=== PATIENT | male | born 1980 | race Caucasian/White ===

== ENCOUNTER → 2017-06-23 17:32 | Outpatient (CLI) | payer OTHER, SELFPAY ==
[2017-06-23 18:07] LABS: Absolute Lymphocyte Count 1.49 X10^3/ul (0.83-4.51); Absolute Neutrophil Count 3.8 X10^3/uL (2.0-7.7); Basophil# 0.14 X10^3/uL; Basophil% 2.2 % (0-1); Eosinophil# 0.34 X10^3/uL; Eosinophils% 5.3 % (0-5); Hematocrit 41.5 % (40-54); Hemoglobin 14.1 g/dl (13.0-16.5); Lymphocyte # 1.49 X10^3/ul (4.0); Lymphocyte % 23.3 % (19-41); Mean Corpuscular Hgb 31.1 pg (27.0-32.0); Mean Corpuscular Volume 91.4 fL (80-94); Mean Platelet Vol. 9.3 fl (6.2-12.0); Monocyte# 0.61 X10^3/uL; Monocyte% 9.5 % (0-10); Neutrophil # 3.77 X10^3/uL (2.7-7.7); Neutrophil % 59.1 % (47-70); POSITIVE COUNT NO; POSITIVE DIFFERENTIAL NO; POSITIVE MORPHOLOGY NO; Platelet Count 236 K/mm3 (150-450); RBC Distribution Width CV 12.9 % (11.6-14.6); RBC Distribution Width SD 42.2 fl (35.1-43.9); Red Blood Count 4.54 M/mm3 (4.6-6.2); White Blood Count 6.4 K/mm3 (4.4-11.0)
[2017-06-23 18:34] LABS: ALB/GLOB Ratio 1.1 RATIO (0.9-2.4); AST(SGOT) 25 U/L (15-37); Alanine Aminotransfer ALT/SGPT 38 U/L (16-61); Albumin, Serum 3.8 g/dL (3.2-5.0); Alkaline Phosphatase 89 U/L (45-117); Anion Gap 7 (5-15); BUN 17 mg/dL (7-18); Calcium,Total 8.9 mg/dL (8.5-10.1); Chloride 104 mmol/L (98-107); Cholesterol 141 mg/dL (200); Creatinine, Serum 0.74 mg/dL (0.70-1.30); EST Glomerular Filtration Rate 128 mL/min (>60); Est Glom Filt Rate - Afr Amer 155 mL/min (>60); Globulin 3.4 g/dL (2.2-4.2); Glucose 78 mg/dL (74-106); High Density Lipoprotein 51 mg/dL; Iron 61 ug/dL (65-175); Iron Binding Capacity,Total 329 ug/dL (250-450); Potassium 3.7 mmol/L (3.5-5.1); Prealbumin 25.6 mg/dL (20.0-40.0); Protein, Total 7.2 g/dL (6.4-8.2); Sodium Level 140 mmol/L (136-145); Triglycerides 36 mg/dL; Very Low Density Lipoprotein 7 mg/dL (5-40)
[2017-06-23 19:09] LABS: HIV - WCH Non-Reactive (Nonreactive); Vitamin B12 818 pg/mL (211-911); Vitamin D,25 Hydroxy 46.2 ng/mL (29.95-100.01)
[2017-06-29 03:06] LABS: Immunoglobulin A 131 mg/dL (90-386); Immunoglobulin E 259 IU/mL (0-100); Immunoglobulin G 649 mg/dL (700-1600); Immunoglobulin M 70 mg/dL (20-172)
[2017-06-29 08:12] LABS: Hep C Antibodies 0.1 s/co ratio (0.0-0.9)
== END ==
PROVIDERS: Visit Provider Family Medicine Geriatric Medicine
DX: R63.8 Other symptoms and signs concerning food and fluid intake (principal)
CPT/HCPCS: 36415; 80053; 80061; 82306; 82607; 82746; 82784; 82785; 83540; 83550; 84134; 84443; 85025; 86703; 86803

== ENCOUNTER → 2017-07-08 15:05 | Outpatient (CLI) | payer OTHER, SELFPAY ==
--- NOTE | 2017-07-08 16:08 | CT_ITS ---
STUDY: CT ABDOMEN AND PELVIS WITH CONTRAST REASON FOR EXAM: Male, 37 years old. Epigastric pain 2 days nausea for months RADIATION DOSAGE (If Supplied By Facility): CTDIvol = ( 9.22 ) mGy, DLP = ( 425.5 ) mGycm TECHNIQUE: Transaxial images were obtained from the dome of the diaphragm to the symphysis pubis with oral contrast. 100 ml of Isovue 300 contrast was administered. Sagittal and coronal images were reconstructed. Individualized dose optimization techniques were used for this CT. COMPARISON: None. FINDINGS: The visualized lung bases are unremarkable. The visualized portions of the heart are within normal limits. Normal liver. Normal gallbladder and extrahepatic biliary system. Normal spleen. Normal pancreas. Normal bilateral adrenal glands. Normal right kidney. Normal left kidney. There is contrast in the stomach. There is contrast in the small bowel. There is abundant stool in the colon from the cecum to the rectum. Appendix is seen on image #38 coronal views partially contrasted. Normal abdominal aorta. The IVC appears distended. Normal retroperitoneum. The bladder is distended. Normal visualized prostate gland. Normal abdominal wall. Normal osseous structures. CT/Abdomen/Pelvis WITH Contrast IMPRESSION: Constipation nonspecific bowel gas pattern. No evidence of appendicitis. Nonspecific distention of the inferior vena cava. Electronically Signed: Emperatriz Jessica MD at 16:48 EDT Tel , Service support ,
[2017-07-08 16:23] LABS: Absolute Lymphocyte Count 0.36 X10^3/ul (0.83-4.51); Absolute Neutrophil Count 7.6 X10^3/uL (2.0-7.7); Basophil# 0.05 X10^3/uL; Basophil% 0.6 % (0-1); Eosinophil# 0.15 X10^3/uL; Eosinophils% 1.7 % (0-5); Hemoglobin 15.8 g/dl (13.0-16.5); Lymphocyte # 0.36 X10^3/ul (4.0); Lymphocyte % 4.1 % (19-41); Mean Corp Hgb Conc 33.6 g/gl (32-36); Mean Corpuscular Hgb 31.4 pg (27.0-32.0); Mean Corpuscular Volume 93.4 fL (80-94); Mean Platelet Vol. 10.5 fl (6.2-12.0); Monocyte# 0.58 X10^3/uL; Monocyte% 6.6 % (0-10); Neutrophil # 7.61 X10^3/uL (2.7-7.7); Neutrophil % 86.8 % (47-70); Platelet Count 171 K/mm3 (150-450); RBC Distribution Width CV 13.9 % (11.6-14.6); RBC Distribution Width SD 46.2 fl (35.1-43.9); Red Blood Count 5.03 M/mm3 (4.6-6.2); White Blood Count 8.8 K/mm3 (4.4-11.0)
[2017-07-08 16:24] LABS: Differential Indicated SCAN CRITERIA MET; POSITIVE COUNT NO; POSITIVE DIFFERENTIAL YES; POSITIVE MORPHOLOGY NO
[2017-07-08 16:40] LABS: ALB/GLOB Ratio 1.3 RATIO (0.9-2.4); AST(SGOT) 37 U/L (15-37); Alanine Aminotransfer ALT/SGPT 41 U/L (16-61); Albumin, Serum 3.8 g/dL (3.2-5.0); Alkaline Phosphatase 80 U/L (45-117); Amylase 62 U/L (25-115); Anion Gap 8 (5-15); BUN 18 mg/dL (7-18); BUN/Creat Ratio 22.3 RATIO (10-20); Calcium,Total 8.4 mg/dL (8.5-10.1); Chloride 105 mmol/L (98-107); Creatinine, Serum 0.81 mg/dL (0.70-1.30); Differential Comment SCANNED; EST Glomerular Filtration Rate 115 mL/min (>60); Est Glom Filt Rate - Afr Amer 140 mL/min (>60); Glucose 80 mg/dL (74-106); Lipase 99 U/L (73-393); Potassium 3.9 mmol/L (3.5-5.1); Protein, Total 6.8 g/dL (6.4-8.2); Sodium Level 140 mmol/L (136-145)
[2017-07-09 09:27] LABS: Bilirubin, Direct 0.34 mg/dL (0.00-0.30)
[2017-07-10 04:09] LABS: HEPATITIS B SURFACE AG Negative (Negative); Hepatitis A AB, Total Negative (Negative); Hepatitis A IgM Antibody Negative (Negative); Hepatitis B Core AB IgM Negative (Negative); Hepatitis B Core Ab Total Negative (Negative); Hepatitis C Ab <0.1 s/co ratio (0.0-0.9)
[2017-07-10 09:03] LABS: Hep B Surface Antibodies Reactive (.)
== END ==
PROVIDERS: Family Provider Family Medicine Geriatric Medicine; PCP Family Medicine Geriatric Medicine; Visit Provider Family Medicine Geriatric Medicine
DX: R10.9 Unspecified abdominal pain (principal); R50.9 Fever, unspecified; R63.4 Abnormal weight loss
CPT/HCPCS: 74177; 80053; 82150; 82248; 83690; 85025; 86704; 86705; 86706; 86708; 86709; 86803; 87040; 87340; Q9967

== ENCOUNTER → 2017-07-09 18:02 | Outpatient (CLI) | payer OTHER, SELFPAY | PROVIDERS: Family Provider Family Medicine Geriatric Medicine; PCP Family Medicine Geriatric Medicine; Visit Provider Family Medicine Geriatric Medicine | DX: R69 Illness, unspecified (principal) ==

== ENCOUNTER → 2017-07-10 08:03 | Outpatient (CLI) | payer OTHER, SELFPAY ==
--- NOTE | 2017-07-10 08:06 | US_ITS ---
STUDY: ABDOMINAL ULTRASOUND - RIGHT UPPER QUADRANT REASON FOR VISIT: Male, 37 years old. Right upper quadrant pain. Elevated bilirubin level. TECHNIQUE: Ultrasound evaluation of the right upper quadrant was performed with real-time and static covarrubias-scale imaging. TECHNICAL QUALITY: Adequate. COMPARISON: None. FINDINGS: Liver: The liver measures 14.4 cm. There is normal echogenicity of the liver. The bile ducts are within normal limits. There is hepatic color flow. The direction of portal flow is hepatopetal. There is no demonstrated mass lesion. Gallbladder: Normal distended gallbladder. The gallbladder wall measures 1.8 mm. There is a negative sonographic Hall's sign. There is no pericholecystic fluid. There are no gallstones. Common Bile Duct (C.B.D.): The common bile duct measures 4.7 mm. Pancreas: Normal size of the head, body and tail of the pancreas. There is normal echogenicity of the pancreas. There is no demonstrated pancreatic mass or cyst. Right Kidney: Normal size of the right kidney. The right kidney measures 12.5 cm x 5.1 cm x 4.7 cm. Normal renal cortex. The right cortex measures 1.6 cm. There is no demonstrated renal mass or cyst. There is no right hydronephrosis. US/Abdomen Limited IMPRESSION: Normal right upper quadrant ultrasound examination. Electronically Signed: Ricardo Diamond MD at 8:58 EDT Tel [phone], Service support ,
[2017-07-11 13:05] LABS: Anti-Mitochondrial AB <20.0 Units (0.0-20.0)
== END ==
PROVIDERS: Family Provider Family Medicine Geriatric Medicine; PCP Family Medicine Geriatric Medicine; Visit Provider Family Medicine Geriatric Medicine
DX: R10.9 Unspecified abdominal pain (principal); E80.6 Other disorders of bilirubin metabolism; R50.9 Fever, unspecified
CPT/HCPCS: 36415; 76705; 83516; 87633

== ENCOUNTER 2017-07-28 14:52 | Outpatient (RCR) | payer OTHER, SELFPAY | END 2017-07-28 14:53 | LOC: NS 14:52 | PROVIDERS: Family Provider Family Medicine Geriatric Medicine; PCP Family Medicine Geriatric Medicine; Visit Provider Family Medicine Geriatric Medicine | DX: R63.8 Other symptoms and signs concerning food and fluid intake (principal); R63.4 Abnormal weight loss; Z71.3 Dietary counseling and surveillance | CPT/HCPCS: 97802 ==

== ENCOUNTER → 2017-10-06 14:36 | Outpatient (CLI) | payer OTHER, SELFPAY ==
[2017-10-06 15:48] LABS: AST(SGOT) 28 U/L (15-37); Alanine Aminotransfer ALT/SGPT 38 U/L (16-61); Albumin, Serum 4.1 g/dL (3.2-5.0); Alkaline Phosphatase 92 U/L (45-117); Bilirubin, Direct 0.23 mg/dL (0.00-0.30); GGTP 26 U/L (15-85); Globulin 2.6 g/dL (2.2-4.2); Protein, Total 6.7 g/dL (6.4-8.2)
== END ==
PROVIDERS: Family Provider Family Medicine Geriatric Medicine; PCP Family Medicine Geriatric Medicine; Visit Provider Internal Medicine Gastroenterology
DX: E80.6 Other disorders of bilirubin metabolism (principal); E80.4 Gilbert syndrome
CPT/HCPCS: 36415; 80076; 82977

== ENCOUNTER → 2018-01-19 16:03 | Outpatient (CLI) | payer OTHER, SELFPAY | PROVIDERS: Family Provider Family Medicine Geriatric Medicine; PCP Family Medicine Geriatric Medicine | DX: N46.11 Organic oligospermia (principal) | CPT/HCPCS: 36415; 84403 ==

== ENCOUNTER → 2018-07-21 | Outpatient (CLI) | payer OTHER, SELFPAY ==
[2018-07-21 10:08] LABS: Hematocrit 45.6 % (40-54)
[2018-07-21 11:44] LABS: Prolactin 5.9 ng/mL
== END | disposition home or self-care (01) ==
LOC: MTLAB 08:42
PROVIDERS: Family Provider Family Medicine Geriatric Medicine; PCP Family Medicine Geriatric Medicine
DX: E29.1 Testicular hypofunction (principal)
CPT/HCPCS: 36415; 82670; 84146; 84403; 85014

== ENCOUNTER → 2018-09-18 | Outpatient (CLI) | payer OTHER, SELFPAY ==
[2018-09-18 13:39] LABS: Absolute Lymphocyte Count 1.67 X10^3/ul (0.83-4.51); Absolute Neutrophil Count 6.9 X10^3/uL (2.0-7.7); Basophil# 0.07 X10^3/uL; Basophil% 0.7 % (0-1); Eosinophil# 0.59 X10^3/uL; Eosinophils% 6.1 % (0-5); Hematocrit 45.2 % (40-54); Hemoglobin 15.5 g/dl (13.0-16.5); Lymphocyte # 1.67 X10^3/ul (4.0); Lymphocyte % 17.1 % (19-41); Mean Corp Hgb Conc 34.3 g/gl (32-36); Mean Corpuscular Hgb 31.6 pg (27.0-32.0); Mean Corpuscular Volume 92.2 fL (80-94); Mean Platelet Vol. 10.2 fl (6.2-12.0); Monocyte% 5.1 % (0-10); Neutrophil # 6.88 X10^3/uL (2.7-7.7); Neutrophil % 70.7 % (47-70); POSITIVE COUNT NO; POSITIVE DIFFERENTIAL NO; POSITIVE MORPHOLOGY NO; Platelet Count 184 K/mm3 (150-450); RBC Distribution Width CV 13.4 % (11.6-14.6); RBC Distribution Width SD 45.1 fl (35.1-43.9); White Blood Count 9.7 K/mm3 (4.4-11.0)
[2018-09-18 13:44] LABS: Ferritin 40 ng/mL (26-388); Iron 65 ug/dL (65-175); Iron Binding Capacity,Total 338 ug/dL (250-450)
[2018-09-18 13:54] LABS: Homocysteine 6.7 umol/L (3.2-10.7)
== END | disposition home or self-care (01) ==
LOC: LAB 13:03
PROVIDERS: Family Provider Family Medicine Geriatric Medicine; PCP Family Medicine Geriatric Medicine; Referring Provider Family Medicine Geriatric Medicine; Visit Provider Family Medicine Geriatric Medicine
DX: D50.9 Iron deficiency anemia, unspecified (principal); D64.9 Anemia, unspecified; E53.8 Deficiency of other specified B group vitamins; E80.6 Other disorders of bilirubin metabolism
CPT/HCPCS: 36415; 82728; 83090; 83540; 83550; 83921; 85025

== ENCOUNTER → 2019-07-19 16:06 | Outpatient (CLI) | payer OTHER, SELFPAY ==
[2019-07-19 17:20] LABS: Absolute Lymphocyte Count 1.53 X10^3/uL (0.83-4.51); Absolute Neutrophil Count 2.9 X10^3/uL (2.0-7.7); Basophil# 0.12 X10^3/uL; Basophil% 2.2 % (0-1); Eosinophil# 0.38 X10^3/uL; Hematocrit 44.9 % (40-54); Hemoglobin 15.2 g/dL (13.0-16.5); Lymphocyte # 1.53 X10^3/ul (4.0); Mean Corp Hgb Conc 33.9 g/dL (32-36); Mean Corpuscular Hgb 32.2 pg (27.0-32.0); Mean Corpuscular Volume 95.1 fL (80-94); Mean Platelet Vol. 11.2 fl (6.2-12.0); Monocyte# 0.53 X10^3/uL; Monocyte% 9.7 % (0-10); NRBC Flagged by Analyzer 0 % (0-5); Neutrophil # 2.88 X10^3/uL (2.7-7.7); Neutrophil % 52.7 % (47-70); Platelet Count 157 K/mm3 (150-450); RBC Distribution Width CV 12.5 % (11.6-14.6); RBC Distribution Width SD 44.2 fl (35.1-43.9); Red Blood Count 4.72 M/mm3 (4.6-6.2); White Blood Count 5.5 K/mm3 (4.4-11.0)
[2019-07-19 17:26] LABS: Vitamin D,25 Hydroxy 26.8 ng/mL
[2019-07-19 17:35] LABS: ALB/GLOB Ratio 1.4 RATIO (0.9-2.4); AST(SGOT) 23 U/L (15-37); Alanine Aminotransfer ALT/SGPT 32 U/L (16-61); Albumin, Serum 3.9 g/dL (3.2-5.0); Alkaline Phosphatase 113 U/L (45-117); Anion Gap 1 (5-15); BUN 12 mg/dL (7-18); BUN/Creat Ratio 13.8 RATIO (10-20); Calcium,Total 8.5 mg/dL (8.5-10.1); Chloride 109 mmol/L (98-107); Creatinine, Serum 0.87 mg/dL (0.70-1.30); EST Glomerular Filtration Rate 105 mL/min (>60); Est Glom Filt Rate - Afr Amer 127 mL/min (>60); Ferritin 35 ng/mL (26-388); Globulin 2.7 g/dL (2.2-4.2); Glucose 65 mg/dL (74-106); Iron 102 ug/dL (65-175); Iron Binding Capacity,Total 349 ug/dL (250-450); Potassium 4.3 mmol/L (3.5-5.1); Protein, Total 6.6 g/dL (6.4-8.2); Sodium Level 140 mmol/L (136-145); Thyroid Stim Hormone (TSH) 1.29 uIU/mL (0.358-3.74)
== END ==
PROVIDERS: PCP Family Medicine Geriatric Medicine; Referring Provider Family Medicine Geriatric Medicine; Visit Provider Family Medicine Geriatric Medicine
DX: E23.6 Other disorders of pituitary gland (principal); R53.83 Other fatigue
CPT/HCPCS: 36415; 80053; 82306; 82728; 82746; 83540; 83550; 84403; 84443; 85025

== ENCOUNTER 2019-11-24 13:44 | Emergency (ER) | payer OTHER, SELFPAY ==
[2019-11-24 13:46] VITALS: BP 119/70; PULSE 53; PULSE 54; RESP 16; RESP 17; TEMP 36.3; O2SAT 100; O2SAT 99; BMI 20.3
--- NOTE | 2019-11-24 14:09 | NURSING ---
DR SUPA RUDOLPH
--- NOTE | 2019-11-24 14:09 | ED.VIS.GEN ---
History of Present Illness Chief Complaint: Occup Expose Informant: Patient Onset: Today Context: Gradual Onset Current Severity: Mild Maximum Severity: Mild Narrative: Patient is an otherwise healthy male who presents to the emergency department with needle puncture to left middle finger. The patient was in surgery. He was debriding a foot. He accidentally poked himself with a suture needle. It was not hollow bore. There was no active bleeding. He has no history of immunosuppression. He is otherwise healthy. Prior similar symptoms: No Recent Illness/Hospitalization: No Past Medical History - Allergies and Home Meds Allergies/Adverse Reactions: Allergies No Known Allergies Allergy (Verified 11/24/19 13:44) [facility] [place] [facility] OF [facility]YSIC[facility]] - Prior records reviewed: Yes Past Medical History: None Surgical History: noncontributory Smoking Status: Unknown if ever smoked Review of Systems General: Denies: Chills, Fever, Sweats Eyes: Denies: Visual changes - bilaterally, Diplopia ENT: Denies: Rhinorrhea, Sore throat Cardiovascular: Denies: Chest pain, Palpitations Respiratory: Denies: Dyspnea, Cough, Dyspnea on exertion Gastrointestinal: Denies: Abdominal pain, Nausea, Vomiting, Diarrhea, Melena, Hematochezia Genitourinary: Denies: Dysuria, Hematuria, Frequency Musculoskeletal: Denies: Back pain, Extremity Pain Skin: Denies: Rash, Wounds Neurological: Denies: Headache, Weakness, Numbness Physical Exam Vital Signs/Narrative: Vital Signs Temp Pulse Resp BP Pulse Ox 11/24/19 13:46 97.3 F L 53 L 16 119/70 100 Inital Vital Signs reviewed: Yes General: Well nourished, Well developed, No Acute Distress Head: Normocephalic, Atraumatic Eyes: Perrl, EOMI ENT: Moist mucous membranes, No rhinorrhea Cardiovascular: Regular rate, Regular rhythm Respiratory: No distress Extremities: Nontender, No edema Skin: Normal color, No rash Neurological: Alert, Oriented x3, Cranial nerves II-XII grossly intact, Normal Strength, Normal Sensation Psychological: Normal affect, Normal Mood Diagnostic/Tx/Re-eval - Medical Decision Making The patient presents with needlestick. It was a solid needle with no significant puncture. His tetanus is updated. I did discuss his case with infectious disease. At this point, as the source patient is hospitalized and is able to undergo testing with close follow-up, we will hold on antiretroviral therapy. The patient is comfortable with this plan of care. Impression 1. Needlestick left third finger ED Disposition - Plan for ED Patient: Instructions: ED NEEDLE STICK Health Care Worker [facility], [place] [GROUP OF PHYSICIANS] -
[2019-11-24] MEDS: Diphth,Pertuss(Acell),Tet Vac 0.5 ML Vial IM (14:17)
[2019-11-24 14:31] VITALS: BP 109/76; RESP 18
[2019-11-24 16:45] LABS: HIV - WCH Non-Reactive (Nonreactive); Hepatitis B Surface Antibody Reactive; Hepatitis B Surface Antigen Non-Reactive (Nonreactive); Hepatitis C Antibody Non-Reactive (Nonreactive)
== END 2019-11-24 14:35 | disposition home or self-care (01) ==
LOC: ED 14:07
PROVIDERS: Emergency Provider Emergency Medicine; PCP Family Medicine Geriatric Medicine
DX: S61.233A Puncture wound without foreign body of left middle finger without damage to nail, initial encounter (principal); W46.0XXA Contact with hypodermic needle, initial encounter; Y93.9 Activity, unspecified; Y92.9 Unspecified place or not applicable
CPT/HCPCS: 86703; 86706; 86803; 87340; 90471; 90715; 99283

== ENCOUNTER 2020-02-25 13:33 | Emergency (ER) | payer OTHER, SELFPAY ==
[2020-02-25 13:34] VITALS: BP 109/62; PULSE 61; RESP 18; TEMP 36; O2SAT 99; BMI 20.7
--- NOTE | 2020-02-25 14:41 | DCINST.ED_ITS ---
ED Disposition - Plan for ED Patient: Instructions: ED NEEDLE STICK Health Care Worker Referrals: Dirk Villegas Chi, MD [Primary Care Provider] - [facility] [GROUP OF PHYSICIANS] -
--- NOTE | 2020-02-25 14:41 | ED.DEP ---
ED Disposition - Plan for ED Patient: Instructions: ED NEEDLE STICK Health Care Worker Referrals: Dirk Villegas Chi, MD [Primary Care Provider] - [facility] [place] [GROUP OF PHYSICIANS] -
--- NOTE | 2020-02-25 15:06 | ED.VISSUMM ---
- ER Visit Summary Date of Service: 02/25/20 Chief Complaint: Occupational exposure History of Present Illness: The patient is a 39 M presenting with occupational exposure. He was operating and a K wire poked through his glove of his left thumb. This was irrigated immediately and washed with Betadine. The source patient is admitted to the hospital and is able to be tested. Physical Examination: Vitals are stable. Patient is afebrile. Alert no acute distress. HEENT exam is unremarkable. Neck is supple. Lungs no distress Extremities small abrasion left thumb Skin is warm and dry. Remainder of exam is unremarkable. Emergency Department Course and Treatment: Occupational blood exposure protocol was ordered. He does not wish to have postexposure prophylaxis. Patient advised to follow-up with [facility] care. Advised return to ED for worsening complaints. Disposition: Discharge home Impression: Occupational exposure This note was generated with [employer] dictation software. It may contain incorrect words, spelling, and punctuation that were not noted in review of the chart prior to signing ED Disposition - Plan for ED Patient: Disposition: Home or Assisted Living Instructions: ED NEEDLE STICK Health Care Worker Referrals: [facility] [GROUP OF PHYSICIANS] - Dirk Villegas Chi, MD [Primary Care Provider] -
[2020-02-25 16:05] LABS: HIV - WCH Non-Reactive (Nonreactive); Hepatitis B Surface Antibody Reactive; Hepatitis B Surface Antigen Non-Reactive (Nonreactive); Hepatitis C Antibody Non-Reactive (Nonreactive)
== END 2020-02-25 15:04 | disposition home or self-care (01) ==
LOC: ED 15:03
PROVIDERS: Emergency Medicine; Emergency Provider Emergency Medicine; PCP Family Medicine Geriatric Medicine
DX: S61.032A Puncture wound without foreign body of left thumb without damage to nail, initial encounter (principal); W26.8XXA Contact with other sharp object(s), not elsewhere classified, initial encounter; Y93.9 Activity, unspecified; Y92.234 Operating room of hospital as the place of occurrence of the external cause; Z77.21 Contact with and (suspected) exposure to potentially hazardous body fluids; J45.909 Unspecified asthma, uncomplicated
CPT/HCPCS: 36415; 86703; 86706; 86803; 87340; 99283

== ENCOUNTER 2020-06-09 13:43 | Emergency (ER) | payer OTHER, SELFPAY ==
[2020-06-09 13:44] VITALS: BP 133/78; PULSE 61; RESP 17; TEMP 36.6; O2SAT 96; BMI 20.7
--- NOTE | 2020-06-09 14:05 | ED.DCSUM_ITS ---
History of Present Illness Chief Complaint: Occup Expose Informant: Patient Onset: Today Context: Sudden Onset Current Severity: Mild Maximum Severity: Mild Narrative: Patient is an otherwise healthy 40-year-old male presents to the emergency department after accidental exposure. 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 He was using a K wire. It poked through his gloves into the mid phalange he palmar aspect of his left fourth finger. He states the patient is healthy. There is no known history of HIV or hepatitis. His tetanus is up-to-date. He is otherwise been in his normal state of health. Past Medical History - Allergies and Home Meds Allergies/Adverse Reactions: Allergies No Known Allergies Allergy (Verified 06/09/20 13:47) Primary Care Physician: Dirk Villegas Chi, MD [Primary Care Provider] - Prior records reviewed: Yes Past Medical History: None Surgical History: noncontributory Smoking Status: Never smoker Review of Systems General: Denies: Chills, Fever, Sweats Eyes: Denies: Visual changes - bilaterally, Diplopia ENT: Denies: Rhinorrhea, Sore throat Cardiovascular: Denies: Chest pain, Palpitations Respiratory: Denies: Dyspnea, Cough, Dyspnea on exertion Gastrointestinal: Denies: Abdominal pain, Nausea, Vomiting, Diarrhea, Melena, Hematochezia Genitourinary: Denies: Dysuria, Hematuria, Frequency Musculoskeletal: Denies: Back pain, Extremity Pain Skin: Denies: Rash, Wounds Neurological: Denies: Headache, Weakness, Numbness Physical Exam Vital Signs/Narrative: Vital Signs Temp Pulse Resp BP Pulse Ox 06/09/20 13:44 97.9 F 61 17 133/78 H 96 Inital Vital Signs reviewed: Yes General: Well nourished, Well developed, No Acute Distress Head: Normocephalic, Atraumatic Eyes: Perrl, EOMI ENT: Moist mucous membranes, No rhinorrhea Neck: Supple, Nontender Cardiovascular: Regular rate, Regular rhythm, No murmurs Respiratory: No distress, CTA bilaterally, Chest nontender Abdomen: Soft, Nontender, Nondistended, Normal bowel sounds Back: Nontender, Normal Inspection Extremities: No edema, Tenderness - Small puncture mid phalangeal palmar aspect left fourth. No active bleeding. Skin: Normal color, No rash Neurological: Alert, Oriented x3, Cranial nerves II-XII grossly intact, Normal Strength, Normal Sensation Psychological: Normal affect, Normal Mood Diagnostic/Tx/Re-eval - Medical Decision Making Patient is an employee that has been exposed. Exposure protocol was utilized. Labs are obtained. His tetanus is already up-to-date. At this point, the patient will be discharged to follow-up with [facility] care. He is comfortable with this plan. Impression 1. Accidental needlestick ED Disposition - Plan for ED Patient: Instructions: ED NEEDLE STICK Health Care Worker Referrals: [facility], [place] [GROUP OF PHYSICIANS] -
[2020-06-09 15:01] VITALS: PULSE 60; RESP 16; O2SAT 98
[2020-06-09 17:43] LABS: HIV - WCH Non-Reactive (Nonreactive); Hepatitis B Surface Antibody Reactive; Hepatitis B Surface Antigen Non-Reactive (Nonreactive); Hepatitis C Antibody Non-Reactive (Nonreactive)
== END 2020-06-09 15:10 | disposition home or self-care (01) ==
LOC: ED 14:24
PROVIDERS: Emergency Provider Emergency Medicine; PCP Family Medicine Geriatric Medicine
DX: S61.235A Puncture wound without foreign body of left ring finger without damage to nail, initial encounter (principal); W46.0XXA Contact with hypodermic needle, initial encounter; Y93.9 Activity, unspecified; Y92.9 Unspecified place or not applicable
CPT/HCPCS: 86703; 86706; 86803; 87340; 99281

== ENCOUNTER → 2020-06-18 | Outpatient (CLI) | payer OTHER, SELFPAY ==
[2020-06-09 13:44] VITALS: BMI 20.7
[2020-06-18 16:16] LABS: M R Staph aureus DNA By PCR Negative (Negative); Probe Check PASS; Specimen Processing Control PASS; Staph aureus DNA By PCR POSITIVE (Negative)
== END | disposition home or self-care (01) ==
PROVIDERS: PCP Family Medicine Geriatric Medicine; Referring Provider Podiatrist; Visit Provider Podiatrist
DX: L03.012 Cellulitis of left finger (principal)
CPT/HCPCS: 87070; 87077; 87186; 87205; 87640

== ENCOUNTER → 2020-07-24 10:57 | Outpatient (CLI) | payer OTHER, SELFPAY ==
[2020-07-24 11:36] LABS: Absolute Lymphocyte Count 1.24 X10^3/uL (0.83-4.51); Absolute Neutrophil Count 3.1 X10^3/uL (2.0-7.7); Basophil# 0.12 X10^3/uL; Basophil% 2.3 % (0-1); Eosinophil# 0.33 X10^3/uL; Eosinophils% 6.3 % (0-5); Hematocrit 44.8 % (40-54); Hemoglobin 14.8 g/dL (13.0-16.5); Lymphocyte # 1.24 X10^3/ul (0.83-4.51); Lymphocyte % 23.6 % (19-41); Mean Corpuscular Hgb 31.6 pg (27.0-32.0); Mean Corpuscular Volume 95.5 fL (80-94); Mean Platelet Vol. 11.3 fl (6.2-12.0); Monocyte# 0.46 X10^3/uL; Monocyte% 8.8 % (0-10); NRBC Flagged by Analyzer 0 % (0-5); Neutrophil # 3.08 X10^3/uL (2.7-7.7); Neutrophil % 58.6 % (47-70); Platelet Count 181 K/mm3 (150-450); RBC Distribution Width CV 12.8 % (11.6-14.6); RBC Distribution Width SD 44.8 fl (35.1-43.9); Red Blood Count 4.69 M/mm3 (4.6-6.2); White Blood Count 5.3 K/mm3 (4.4-11.0)
[2020-07-24 12:07] LABS: ALB/GLOB Ratio 1.4 RATIO (0.9-2.4); AST(SGOT) 32 U/L (15-37); Alanine Aminotransfer ALT/SGPT 30 U/L (16-61); Albumin, Serum 3.7 g/dL (3.2-5.0); Alkaline Phosphatase 103 U/L (45-117); Anion Gap 8 (5-15); BUN 11 mg/dL (7-18); BUN/Creat Ratio 13.8 RATIO (10-20); Calcium,Total 8.6 mg/dL (8.5-10.1); Chloride 106 mmol/L (98-107); EST Glomerular Filtration Rate 116 mL/min (>60); Est Glom Filt Rate - Afr Amer 140 mL/min (>60); Globulin 2.7 g/dL (2.2-4.2); Glucose 66 mg/dL (74-106); Potassium 4.4 mmol/L (3.5-5.1); Protein, Total 6.4 g/dL (6.4-8.2); Sodium Level 142 mmol/L (136-145); Thyroid Stim Hormone (TSH) 1.26 uIU/mL (0.358-3.74)
== END ==
PROVIDERS: PCP Family Medicine Geriatric Medicine; Visit Provider Family Medicine Geriatric Medicine
DX: R53.83 Other fatigue (principal)
CPT/HCPCS: 36415; 80053; 84443; 85025

== ENCOUNTER 2024-08-20 13:29 | Emergency (ER) | payer OTHER, SELFPAY ==
[2024-08-20 13:29] VITALS: BP 125/73; PULSE 63; RESP 13; TEMP 36.7; O2SAT 100; BMI 22.1
[2024-08-20 13:31] VITALS: BP 108/78; BP 125/73; PULSE 63; PULSE 66; RESP 13; RESP 18; TEMP 36.7; O2SAT 100; O2SAT 99
--- NOTE | 2024-08-20 13:45 | EX.ED.UPPERE ---
HPI History of Present Illness Chief Complaint: Occup Expose Informant: patient Narrative Narrative: 44-year-old male presenting to the emergency room with a chief complaint of needlestick exposure. 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 He was double gloved. Source patient is known. Patient states he washed with peroxide and soap water. PFSH PFSH Medical History Asthma Broken wrist Meningitis Home Medications ?Medication ?Instructions ?Recorded ?Last Taken ?Type albuterol sulfate 90 mcg/actuation 1 - 2 puff inhalation Q4H PRN PRN 06/09/20 Unknown History aerosol inhaler Wheezing amoxicillin 875 mg-potassium 1 tab PO BID #20 tabs 01/19/24 Unknown Rx clavulanate 125 mg tablet benzonatate 200 mg capsule 200 mg PO TID PRN cough #20 caps 01/19/24 Unknown Rx Allergy/AdvReac Type Severity Reaction Status Date / Time No Known Allergies Allergy Verified 08/20/24 13:31 Family History Father FH: hemochromatosis Surgical History History of tonsillectomy Social History Smoking Status: Never smoker ROS ROS ED Constitutional Constitutional ED: Denies chills, fever(s) or weight loss Eyes Eyes: Denies change in vision or diplopia ENT ENT ED: Denies ear pain, rhinorrhea or sore throat Cardiovascular Cardiovascular: Denies chest pain, orthopnea, palpitations or racing heartbeat Respiratory/Chest Respiratory/Chest: Denies cough, dyspnea or orthopnea Gastrointestinal Gastrointestinal: Denies abdominal pain, diarrhea, nausea or vomiting Genitourinary Genitourinary ED: Denies dysuria, hematuria or urinary frequency Musculoskeletal Musculoskeletal: Denies arthralgias or myalgias Integumentary Reports other Details: Needlestick ; Denies abscess or rash Neurologic Neurologic: Denies headache(s) or weakness Psychiatric Psychiatric: Denies anxiety, depression, suicidal ideation or suicidal thoughts Endocrine Endocrinology: Denies polydipsia, polyphagia or polyuria Allergic/Immunologic Allergic/Immunologic ED: Denies mouth swelling, tongue swelling or urticaria EXAM Physical Exam Const Vital Signs: 08/20/24 13:29 Temperature 98.1 F Temperature Source Temporal Pulse Rate 63 Respiratory Rate 13 Blood Pressure 125/73 H Blood Pressure Mean 90 Pulse Ox 100 Oxygen Delivery Method Room Air Positive well nourished and well developed General Appearance ED: well developed HEENT Reports normocephalic, head/scalp atraumatic and moist mucous membranes Eyes PERRL and EOMs intact bilaterally Neck no lymphadenopathy, supple and no JVD Resp normal respiratory effort and clear to auscultation bilaterally Cardio regular rate, regular rhythm and no murmurs GI normal to inspection, nondistended, normoactive bowel sounds and non-tender Palpation: soft Back/Spine normal ROM Extremity normal to inspection Extremity Narrative: No obvious needlestick wound on the digit. General Extremety ED: Negative for edema General Extremity: Negative for edema Neuro oriented x3 and CN's II-XII intact bilaterally Sensorium / Orientation: alert Motor Exam: strength 5/5 throughout Psych mental status grossly normal Mood & Affect: Negative for depressed or tearful Skin no rashes or lesions noted and no wounds MDM MDM MDM Narrative Medical decision making narrative: Source patient is known needle stick exposure labs ordered. Patient will be following with employee health to determine further testing if indicated. Local wound care as needed Discharge Plan Triage Chief Complaint: Occup Expose ED Provider: Cosmo Kumar Dx/Rx/DC Orders Clinical Impression: Needlestick injury accident, Occupational exposure in workplace Instructions: ED NEEDLE STICK Health Care Worker Prescriptions: No Action amoxicillin-pot clavulanate 875-125 mg tablet 1 tab PO BID Qty: 20 0RF benzonatate 200 mg capsule 200 mg PO TID PRN (Reason: cough) Qty: 20 0RF albuterol sulfate 1 PUFF inhaler 1 - 2 puff INHALATION Q4H PRN PRN (Reason: Wheezing) Primary Care Provider: Dirk Villegas Chi Referrals: Dirk Villegas Chi, MD [Primary Care Provider] - Activity Restrictions/Additional Instructions: Please follow-up with employee health to discuss laboratory results and further monitoring Local wound care as needed Print Language: Turkmen Disposition Disposition: Home, Self Care
[2024-08-20 14:49] LABS: HIV Nonreactive (Nonreactive); Hepatitis B Surface Antigen Nonreactive (Nonreactive); Hepatitis C Antibody Nonreactive (Nonreactive)
[2024-08-20 14:54] LABS: Hepatitis B Surface Antibody REAC
== END 2024-08-20 14:04 | disposition home or self-care (01) ==
PROVIDERS: Emergency Provider Emergency Medicine; PCP Family Medicine Geriatric Medicine; Visit Provider Emergency Medicine
DX: S61.239A Puncture wound without foreign body of unspecified finger without damage to nail, initial encounter (principal); W46.1XXA Contact with contaminated hypodermic needle, initial encounter; Y93.89 Activity, other specified; Y99.0 Civilian activity done for income or pay; Y92.234 Operating room of hospital as the place of occurrence of the external cause
CPT/HCPCS: 86703; 86706; 86803; 87340; 99282